=== PATIENT | male | born 1985 | race Caucasian/White ===

== ENCOUNTER 2023-09-19 17:24 | Emergency (ER) | payer OTHER ==
[2023-09-19 17:53] VITALS: BP 115/69; PULSE 70; RESP 18; TEMP 98.4
[2023-09-19 18:59] LABS: BASO % 0.3 % (0-2.0); EOS % 1.2 % (0-4.5); HEMATOCRIT 34.5 % (35.4-49); HEMOGLOBIN 11.6 GM/dL (11.7-16.9); MCHC 33.6 g/dl (32.0-35.9); MEAN CELL VOLUME 80.4 fl (80-96); MEAN PLT VOLUME 6.3 fl (7.5-11.1); MONO % 13.1 % (3.8-10.2); NEUT % 64.4 % (42.8-82.8); PLATELET COUNT 467 10^3/uL (134-434); RBC 4.28 M/mm3 (4.00-5.60); RDW 14.3 % (11.9-15.9); WHITE BLOOD COUNT 7.2 K/mm3 (4.0-10.0)
[2023-09-19] MEDS ORDERED: IBUPROFEN 600 MG TABLET (FP) PO ONE (18:59)
[2023-09-19] MEDS: IBUPROFEN 600 MG TABLET (FP) PO ONE (18:59)
[2023-09-19] MEDS ORDERED: DOXYCYCLINE HYCLATE 100 MG CAPSULE PO ONE (21:09)
[2023-09-19] MEDS ORDERED: AMOX TR/POT CLAV 875MG/125MG TABLETS (FP) ONE (21:09)
[2023-09-19] MEDS: AMOX TR/POT CLAV 875MG/125MG TABLETS (FP) PO ONE (21:11)
[2023-09-19] MEDS: DOXYCYCLINE HYCLATE 100 MG CAPSULE PO ONE (21:11)
== END 2023-09-19 21:30 | disposition home or self-care (01) ==
LOC: JERFT 17:24 → JER 17:24 → JERFT 21:30
DX: J18.9 Pneumonia, unspecified organism (principal); R05.9 Cough, unspecified; R50.9 Fever, unspecified; R09.81 Nasal congestion; Z20.822 Contact with and (suspected) exposure to COVID-19
CPT/HCPCS: 0241U-QW; 36415; 71046-TC-FY; 84484; 85025; 99284-25

== ENCOUNTER 2023-09-19 21:41 | Inpatient (IN) | payer OTHER ==
[2023-09-19 14:30] VITALS: BMI 18.6
[2023-09-19] MEDS: methaDONE HCL 10 MG TABLET PO ONE (16:17)
[2023-09-19] MEDS: chlordiazePOXIDE HCL 25 MG CAPSULE PO ONE (16:17)
[2023-09-19] MEDS: chlordiazePOXIDE HCL 25 MG CAPSULE PO SCH (16:17)
[2023-09-19] MEDS: NICOTINE 14 MG/24 HOURS TOPICAL PATCH TD SCH (17:01)
[2023-09-19] MEDS: PRENATAL VITAMINS W/ FOLIC ACID TABLET (FP) PO SCH (17:02)
[~2023-09-19 21:41] MED LIST: ACETAMINOPHEN 325 MG TABLET (FP) PO PRN; BENZOCAINE/MENTHOL (CHLORASEPTIC ) LOZENGE MM PRN; BISMUTH SUBSALICYLATE 524 MG/30 ML PO PRN; DICYCLOMINE HCL 10 MG CAPSULE PO PRN; IBUPROFEN 400 MG TABLET (FP) PO PRN; LOPERAMIDE HCL 2 MG CAPSULE PO PRN; MAG HYDROX/AL HYDROX/SIMETH 30 ML UNIT-DOSE CUP PO PRN; MAGNESIUM HYDROX 2400MG/30ML ORAL SUSPENSION 30 ML CUP PO PRN; NALOXONE (NARCAN) HCL 4 MG/0.1 ML SPRAY NS PRN; NALOXONE HCL 0.4 MG/ML VIAL IM PRN; ONDANSETRON *ODT* 4 MG TABLET SL PRN; POLYETHYLENE GLYCOL (HEALTHYLAX) 3350 17 GM PACKET PO PRN; chlordiazePOXIDE HCL 25 MG CAPSULE ONE; guaiFENesin 600 MG TABLET.ER (FP) PO PRN; methaDONE HCL 10 MG TABLET (FOR DETOX USE ONLY) ONE; methaDONE HCL 10 MG TABLET PO PRN
[2023-09-20] MEDS: chlordiazePOXIDE HCL 25 MG CAPSULE PO PRN (00:57)
[2023-09-20] MEDS: IBUPROFEN 600 MG TABLET (FP) PO PRN (00:58)
[2023-09-20] MEDS: hydrOXYzine PAMOATE 25 MG CAPSULE (FP) PO PRN (00:58)
[2023-09-20] MEDS: METHOCARBAMOL 500 MG TABLET PO PRN (00:58)
[2023-09-20] MEDS: MELATONIN 5 MG TABLETS PO SCH (01:03)
[2023-09-20] MEDS: THIAMINE 100 MG TABLET PO SCH (01:03)
[2023-09-20] MEDS: cloNIDine HCL 0.1 MG TABLET PO SCH (01:04)
[2023-09-20] MEDS: AMOX TR/POT CLAV 875MG/125MG TABLETS (FP) PO SCH (01:04)
[2023-09-20] MEDS: methaDONE 40 MG, methaDONE 10 MG PO ONE (10:21)
[2023-09-20 11:39] LABS: HEMATOCRIT 34.6 % (35.4-49); HEMOGLOBIN 11.7 GM/dL (11.7-16.9); MCH 27.2 pg (25.7-33.7); MCHC 33.8 g/dl (32.0-35.9); MEAN CELL VOLUME 80.4 fl (80-96); PLATELET COUNT 483 10^3/uL (134-434); RDW 13.8 % (11.9-15.9); WHITE BLOOD COUNT 6.7 K/mm3 (4.0-10.0)
[2023-09-20] MEDS: AZITHROMYCIN 250 MG TABLET PO ONE (11:39)
[2023-09-20 11:54] LABS: CHLORIDE 110 mmol/L (98-107); POTASSIUM 3.7 mmol/L (3.5-5.1); SODIUM 143 mmol/L (136-145)
[2023-09-20 12:14] LABS: BLOOD UREA NITROGEN 13.3 mg/dL (7-18)
[2023-09-20 12:16] LABS: GLUCOSE,RANDOM 88 mg/dL (74-106); SGPT/ALT 34 U/L (13-61); TOT PROT 6.7 g/dl (6.4-8.2)
[2023-09-20 12:17] LABS: ALBUMIN 2.6 g/dl (3.4-5.0); ALK PHOS 60 U/L (45-117); ANION GAP 6 mmol/L (4-13); CO2 28 mmol/L (21-32)
[2023-09-20 12:18] LABS: BILIRUBIN,TOTAL 0.3 mg/dL (0.2-1); CALCIUM 8.7 mg/dL (8.5-10.1); CREATININE 0.7 mg/dL (0.55-1.3); SGOT/AST 17 U/L (15-37)
[2023-09-20] MEDS ORDERED: diphenhydrAMINE HCL 25 MG CAPSULE (FP) PO PRN (12:54)
[2023-09-20] MEDS ORDERED: COLLOIDAL OATMEAL 1 BAR EACH TP PRN (12:56)
[2023-09-20] MEDS: TRIAMCINOLONE ACET 0.1% OINT 15 GM TUBE TP SCH (13:39)
[2023-09-20] MEDS ORDERED: MINERAL OIL/PETROLAT/WATER TOPICAL CREAM 113 GM JAR TP SCH (22:00)
[2023-09-20] MEDS: GLY/DIMETH/PETROLAT,WHT/WATER (AVEENO) CREAM TP SCH (23:27)
[2023-09-20] MEDS: QUEtiapine FUMARATE 50 MG TABLET PO SCH (23:28)
[2023-09-21] MEDS ORDERED: cloNIDine HCL 0.1 MG TABLET PO PRN
[2023-09-21] MEDS: chlordiazePOXIDE HCL 25 MG CAPSULE PO SCH (05:40)
[2023-09-21] MEDS: LACTULOSE 20 GM/30 ML UDC (FOR ORAL USE ONLY) PO SCH (06:39)
[2023-09-21] MEDS: methaDONE 40 MG, methaDONE 20 MG PO ONE (10:04)
[2023-09-21] MEDS: AZITHROMYCIN 250 MG TABLET PO SCH (10:05)
[2023-09-21] MEDS: BENZONATATE 200 MG CAPSULE PO PRN (22:57)
[2023-09-22] MEDS ORDERED: chlordiazePOXIDE HCL 10 MG CAPSULE PO PRN
[2023-09-22] MEDS: chlordiazePOXIDE HCL 10 MG CAPSULE PO SCH (06:02)
[2023-09-22] MEDS: methaDONE 40 MG, methaDONE 30 MG PO ONE (10:09)
[2023-09-23] MEDS: chlordiazePOXIDE HCL 10 MG CAPSULE PO SCH (05:41)
[2023-09-23 06:09] VITALS: PULSE 78
[2023-09-23 09:44] VITALS: BP 101/77; RESP 18; TEMP 97.8
[2023-09-23] MEDS: methaDONE HCL 40 MG DISPERSABLE TABLET PO ONE (10:38)
[2023-09-23] MEDS: methaDONE 40 MG, methaDONE 30 MG PO ONE (10:39)
[2023-09-24] MEDS ORDERED: chlordiazePOXIDE HCL 10 MG CAPSULE PO ONE (05:00)
[2023-09-24] MEDS ORDERED: methaDONE 80 MG, methaDONE 10 MG PO ONE (10:00)
== END 2023-09-23 11:26 | disposition home or self-care (01) | DRG 773 ==
LOC: YASAS 21:41 → Y3N 23:17
PROVIDERS: ADMIT Allergy & Immunology; ATTEND Surgery
PROC: HZ2ZZZZ Detoxification Services for Substance Abuse Treatment (ICD-10-PCS; principal; 2023-09-19)
DX: F10.230 Alcohol dependence with withdrawal, uncomplicated (principal); F11.23 Opioid dependence with withdrawal; F14.20 Cocaine dependence, uncomplicated; F13.20 Sedative, hypnotic or anxiolytic dependence, uncomplicated; F12.20 Cannabis dependence, uncomplicated; F17.210 Nicotine dependence, cigarettes, uncomplicated; F31.9 Bipolar disorder, unspecified; F43.10 Post-traumatic stress disorder, unspecified; E72.20 Disorder of urea cycle metabolism, unspecified; J18.9 Pneumonia, unspecified organism; Z62.810 Personal history of physical and sexual abuse in childhood; Z63.8 Other specified problems related to primary support group
CPT/HCPCS: 0241U-QW; 36415; 71046-TC-FY; 80053; 80305; 80307; 82140; 84484; 85025; 85027; 86780; 93005; 93010; 99284-25